=== PATIENT | male | born 1955 | race Caucasian/White ===

== ENCOUNTER → 2019-06-27 | Outpatient (REF) | payer MEDICARE, BC ==
[~2019-06-27] MED LIST: ASPIRIN PO; COUM1TAB18 OR; LISIPOW PO; OXYC1TAB23 OR; PLAVIX PO; PRAVASTATIN PO; TOPROL PO; TYLE325T5 PO
[2019-06-27 12:51] LABS: ALBUMIN 3.9 GM/DL (3.2-5.2); ALT/SGPT 26 U/L (12-78); BILIRUBIN,TOTAL 0.8 MG/DL (0.2-1.0); BLOOD UREA NITROGEN 19 MG/DL (7-18); CALCIUM LEVEL 8.6 MG/DL (8.8-10.2); CARBON DIOXIDE LEVEL 28 MEQ/L (21-32); CHLORIDE LEVEL 108 MEQ/L (98-107); CHOLESTEROL LEVEL 156 MG/DL (<200); CHOLESTEROL RISK RATIO 3.627 (<5); CREATININE FOR GFR 0.98 MG/DL (0.70-1.30); GLOMERULAR FILTRATION RATE > 60.0 (>49); GLUCOSE, FASTING 94 MG/DL (70-100); HDL CHOLESTEROL 43 MG/DL (>40); LDL CHOLESTEROL 89 MG/DL (<100); NON-HDL-C 113 MG/DL; POTASSIUM SERUM 4.1 MEQ/L (3.5-5.1); SODIUM LEVEL 141 MEQ/L (136-145); TOTAL PROTEIN 6.5 GM/DL (6.4-8.2); TRIGLYCERIDES LEVEL 121 MG/DL (<150)
[2019-06-27 14:07] LABS: HEMOGLOBIN A1c 5.2 %
== END ==
LOC: M LABDRAW1 11:27
PROVIDERS: ATTEND Family Medicine
DX: I25.10 Atherosclerotic heart disease of native coronary artery without angina pectoris (principal)

== ENCOUNTER → 2020-02-14 | Outpatient (CLI) | payer MEDICARE, BC ==
[2020-02-14 13:51] LABS: HEMATOCRIT 46.2 % (42.0-52.0); HEMOGLOBIN 15.9 g/dl (13.5-17.5); MEAN CORPUSCULAR HEMOGLOBIN 30.8 pg (27.0-33.0); MEAN CORPUSCULAR HGB CONC 34.4 g/dl (32.0-36.5); MEAN CORPUSCULAR VOLUME 89.4 fl (80.0-96.0); PLATELET COUNT, AUTOMATED 212 10^3/uL (150-450); RED BLOOD COUNT 5.17 10^6/uL (4.30-6.10); WHITE BLOOD COUNT 9.2 10^3/uL (4.0-10.0)
[2020-02-14 14:02] LABS: ALT/SGPT 33 U/L (12-78); BILIRUBIN,TOTAL 0.8 MG/DL (0.2-1.0); BLOOD UREA NITROGEN 18 MG/DL (7-18); CALCIUM LEVEL 8.5 MG/DL (8.8-10.2); CARBON DIOXIDE LEVEL 28 MEQ/L (21-32); CHLORIDE LEVEL 106 MEQ/L (98-107); CHOLESTEROL LEVEL 170 MG/DL (<200); CHOLESTEROL RISK RATIO 3.953 (<5); CREATININE FOR GFR 0.92 MG/DL (0.70-1.30); GLOMERULAR FILTRATION RATE > 60.0 (>49); GLUCOSE, FASTING 92 MG/DL (70-100); HDL CHOLESTEROL 43 MG/DL (>40); LDL CHOLESTEROL 107 MG/DL (<100); NON-HDL-C 127 MG/DL; POTASSIUM SERUM 4.5 MEQ/L (3.5-5.1); SODIUM LEVEL 140 MEQ/L (136-145); TOTAL PROTEIN 6.8 GM/DL (6.4-8.2); TRIGLYCERIDES LEVEL 100 MG/DL (<150)
[2020-02-14 14:30] LABS: ANISOCYTOSIS 1+; ATYPICAL LYMPH 5 % (0-5); BASOPHILS 2 % (0-1); EOSINOPHILS 12 % (0-3); LYMPHOCYTES 22 % (16-44); MONOCYTES 7 % (0-5); NEUTROPHILS 52 % (28-66); PLATELET ESTIMATE NORMAL (NORMAL)
== END ==
LOC: M PLALAB 11:07
PROVIDERS: ATTEND Family Medicine
DX: I11.9 Hypertensive heart disease without heart failure (principal)

== ENCOUNTER → 2020-09-11 | Outpatient (CLI) | payer MEDICARE, BC ==
[~2020-09-11] MED LIST changes: +CLOP75TA2 PO; +ECOT81TA5 PO; +LISI10TA4 PO; +METO1TAB7 PO; +PRAV40TA2 PO
== END ==
LOC: M LABSMTC 11:35
PROVIDERS: ATTEND Anesthesiology
DX: Z01.812 Encounter for preprocedural laboratory examination (principal); Z20.828 Contact with and (suspected) exposure to other viral communicable diseases

== ENCOUNTER 2020-09-16 09:08 | Inpatient (IN) | payer MEDICARE, BC ==
[~2020-09-16] VITALS: Ht 165.1 cm; Wt 83.5 kg
[~2020-09-16 09:08] MED LIST changes: +LIDOCAINE 2% 100MG/5ML SDV (FOR ANES.) As Ordered ONE; +NS 1,000 ML IV ONE; +propofoL 200 MG/20 ML VIAL As Ordered ONE
[2020-09-16] MEDS ORDERED: fentaNYL 100 MCG/2 ML INJECTION (J3010) As Ordered ONE (11:14)
[2020-09-16] MEDS ORDERED: ERTAPENEM 1GM VIAL(INVanz) (J1335 PER 500MG) As Ordered ONE (11:29)
[2020-09-16] MEDS ORDERED: ROCURONIUM BROMIDE 50 MG/5 ML VIAL As Ordered ONE (11:43)
[2020-09-16] MEDS ORDERED: BUPIVACAINE HCL 0.25% 30ML VIAL As Ordered ONE (11:45)
[2020-09-16] MEDS ORDERED: BUPIVACAINE LIPOSOME/PF 1.3% 20ML VIAL (13.3MG/ML)(EXPAREL)(C9290 PER1MG) As Ordered ONE (11:46)
[2020-09-16] MEDS ORDERED: GLYCOPYRROLATE INJ 0.2 MG/ML 2 ML VIAL As Ordered ONE (12:02)
[2020-09-16] MEDS ORDERED: HYDROmorphone HCL 2 MG/ML 1ML VIAL (J1170) As Ordered ONE (12:27)
[2020-09-16] MEDS ORDERED: dexameTHASONE 4 MG/ML 1ML VIAL (J1100 PER 1MG) As Ordered ONE (12:28)
[2020-09-16] MEDS ORDERED: SUGAMMADEX SODIUM 500 MG/5 ML VIAL (BRIDION) As Ordered ONE (12:28)
[2020-09-16] MEDS ORDERED: ACETAMINOPHEN 1000MG 100ML IV BTL (OFIRMEV) (J0131 PER 10MG) As Ordered ONE (12:28)
[2020-09-16] MEDS ORDERED: ONDANSETRON 4MG/2ML VIAL As Ordered ONE (12:28)
[2020-09-16] MEDS ORDERED: KETOROLAC 30 MG/ML 1ML VIAL IV PRN (13:00)
[2020-09-16] MEDS ORDERED: MORPHINE 2 MG/ML 1ML VIAL (J2270) IV PRN (13:45)
[2020-09-16] MEDS: LR 1,000 ML IV SCH ×2 (14:00→19:08)
[2020-09-16] MEDS ORDERED: ACETAMINOPHEN TAB 650MG DOSE (2X325MG) PO PRN (14:00)
[2020-09-16] MEDS ORDERED: PERCOCET 5MG/325MG TAB PO PRN (14:00)
[2020-09-16] MEDS ORDERED: fentaNYL 100 MCG/2 ML INJECTION (J3010) IV PRN (14:15)
[2020-09-16] MEDS ORDERED: ONDANSETRON 4MG/2ML VIAL IV PRN ×2 (14:15→15:00)
[2020-09-16] MEDS ORDERED: LR 1,000 ML IV SCH (14:15)
[2020-09-16] MEDS ORDERED: oxyCODONE 5MG TAB PO PRN (14:15)
[2020-09-16] MEDS ORDERED: HYDROMORPHONE HCL 0.5 MG/ 0.5 ML SYRINGE (J1170 PER 1) IV PRN (14:15)
--- NOTE | 2020-09-16 14:34 | ROOPDOC ---
[facility] Report Of Operation Report of Operation DATE OF PROCEDURE: 09/16/20 PREPROCEDURE DIAGNOSES: colon perforation. POSTPROCEDURE DIAGNOSES: perforation at the sigmoid colon. PROCEDURE: Diagnostic laparoscopy, converted to exploratory laparotomy, resection of portion of sigmoid colon, [id number] anastomosis. SURGEON: Wyatt Ching MD ELECTRONICS RESEARCH ENGINEER: Jonny House DO ANESTHESIA: General Anesthesia. ESTIMATED BLOOD LOSS: Approximately 50 mL. COMPLICATIONS: none. REMARKS: 65 male who today underwent colonoscopy for rectal bleeding and was recognized to have a colon perforation was directly brought to the operating room. I have spoken to his next of kin to inform them that he would require emergency surgery. Consent is implied due to the emergency nature. PROCEDURE NOTE: DESCRIPTION OF PROCEDURE: Patient was brought directly from the outpatient procedure room to the operating room. He was laid supine on the table. General endotracheal anesthesia was started. Compression boots placed on both lower extremities were DVT prophylaxis. He was then placed on the lithotomy position on Kali stirrups. A Hwang catheter was placed for urine output monitoring he was given a dose of Invanz 1 g IV. His abdomen widely prepped and draped in the usual sterile fashion. We paused for a surgical timeout using both pre-incision safety checklist to verify correct patient, procedure site and additional clinical information prior to beginning the procedure. Patient has a protuberant, rounded abdomen, moderately distended but soft. I started with an entry just to the right and above the umbilicus. A small inci shan was created for a Veress needle was inserted on a controlled fashion. Placement confirmed with saline drop technique. CO2 insufflation and started to pressure 15 mmHg. Using the same incision a 5 mm port was placed under direct vision of laparoscope. On entry he has distended loops of colon that is visualized. There is a small amount of blood in the pelvis but no gross spillage of stool is noted. He was placed on a steep Trendelenburg position, slightly tilted towards the right side to allow for better visualization of the sigmoid colon were think perforation happened. I placed 2 other ports one at the right lower quadrant area and another at the suprapubic area. Using this as my working ports, the site of perforation is noted over at the sigmoid colon. The rest of the colon appears distended but otherwise healthy. It seems to be full-thickness perforation. Initially the extent of the wall perforation or signs of it is not easily visualized. He has a narrow and deep medial pelvis. The rectum can be visualized but somewhat adhered to the posterior wall of the sacrum. The sigmoid goes up above the pelvis and the perforation was noted at the apex of this loop. It loops backboards again in the pelvis seems to be adhered to the rectum. This goes out again in a separate loop out of the pelvis to the descending colon where that portion again is adhered to the pelvic sidewall as well as the lateral abdominal wall which essentially made the sigmoid colon rather immobile. I started freeing up the lateral attachments of the descending and sigmoid colon junction at the white line of Toldt going towards the pelvis. Due to the amount of distention it was hard to move the colon medially also because of the sigmoid colon was adhered to the rectum it was not freely mobile. The colon was rather narrow and this was hard to visualize to be able to free the attachments of the sigmoid colon to the rectum. At this point I had asked Dr. House to scrub with me. We evaluate our options, the site of perforation can no w be better visualized. Its a full wall perforation at this point where the two openings are only connected at the mesenteric wall. Thus a primary repair is viable. He has a long length of the sigmoid colon but this is adhered to the rectum which seems to be amenable for a short resection with a [id number] anastomosis that can be fashioned off. At this point have decided to convert to an open laparotomy. The abdomen was deflated, all ports were removed. A started with an infraumbilical incision from the bottom of the umbilicus to the pelvis which I enlarged superiorly to gain more space. We went through the subcutaneous tissue and opened up the anterior fascia and entered the abdomen. The fascial and peritoneal incision was expanded to the length of the skin incision. A BookWalter retractor was set up. I proceeded freeing up the sigmoid colon continuing the prior laparoscopic dissection from the pelvic sidewall going towards its course into the rectum. The attachments to the rectum was divided with Bovie cautery as well as with the LigaSure device which was straightened up the course of the sigmoid colon. He were then able to exteriorize the perforated portion of the sigmoid colon. The colon seems to line up well for an antecolic side to side anastomosis using the two ends of the perforation. This was lined up with allis forceps. I chose a 75 mm linear stapler with a green load was used for an antecolic side to side anastomosis. The ends of the anterior colotomy was grasped with Allis forceps and second firing of the second 5 mm linear stapler with a green load was used to complete the closure of the colotomy. I then reinforced the anastomosis with Lembert sutures using 3-0 Vicryl starting at the crotch of the anastomosis also at the closure of the colotomies. The adequacy of the anastomosis was likewise checked as well as helical lined up in the pelvis. There remains a short loop coming from the descending colon that goes down slightly towards the pelvis before it enters the anastomosis and straightens out towards the rectum. The abdominal cavity was then irrigated with saline. I placed a 19 Cristobal drain threaded through the right lower quadrant port site and running towards the pelvis close to the anastomosis. The bowels and omentum were then placed in their anatomic location. The abdominal incision was closed. I used a 0 Vicryl at the peritoneum and posterior sheath and #1 stress effects to close the fascia. Subcutaneous tissue was irrigated and skin was closed with joseph. The drain was secured to the skin. Patient remains stable throughout the procedure. He was promptly awakened, extubated and brought to recovery room in stable condition. WYATT CHING MD Sep 16, 2020 14:34
[2020-09-16 15:15] VITALS: BP 143/83
[2020-09-16 15:45] VITALS: BP 143/83
[2020-09-16 16:15] VITALS: BP 130/82
[2020-09-16 17:15] VITALS: BP 142/90
[2020-09-16 19:15] VITALS: BP 136/78
[2020-09-16 20:15] VITALS: BP 140/88
[2020-09-16] MEDS: SENOKOT S TAB PO SCH (20:30)
[2020-09-16] MEDS: PERCOCET 5MG/325MG TAB PO PRN (20:30)
[2020-09-17] MEDS: ALVIMOPAN 12 MG CAPSULE (ENTEREG) PO SCH ×3 (00:13→21:06)
[2020-09-17 02:00] VITALS: BP 130/71
[2020-09-17] MEDS: LR 1,000 ML IV SCH ×2 (04:51→15:54)
[2020-09-17 06:00] VITALS: BP 131/77
[2020-09-17 06:08] LABS: BASO % 0.2 % (0.0-1.0); EOS % 0.1 % (0.0-3.0); HEMATOCRIT 40.5 % (42.0-52.0); HEMOGLOBIN 13.5 g/dl (13.5-17.5); LYMPH # 1.5 10^3/uL (1.5-5.0); LYMPH % 8.3 % (24.0-44.0); MEAN CORPUSCULAR HEMOGLOBIN 29.7 pg (27.0-33.0); MEAN CORPUSCULAR HGB CONC 33.3 g/dl (32.0-36.5); MONO # 1.2 10^3/uL (0.0-0.8); MONO % 6.7 % (0.0-5.0); NEUTROPHILS # 14.9 10^3/uL (1.5-8.5); PLATELET COUNT, AUTOMATED 204 10^3/uL (150-450); RED BLOOD COUNT 4.55 10^6/uL (4.30-6.10); WHITE BLOOD COUNT 17.7 10^3/uL (4.0-10.0)
[2020-09-17 06:33] LABS: BLOOD UREA NITROGEN 14 MG/DL (7-18); CALCIUM LEVEL 8.5 MG/DL (8.8-10.2); CARBON DIOXIDE LEVEL 27 MEQ/L (21-32); CHLORIDE LEVEL 108 MEQ/L (98-107); CREATININE FOR GFR 0.97 MG/DL (0.70-1.30); GLOMERULAR FILTRATION RATE > 60.0 (>49); GLUCOSE, FASTING 119 MG/DL (70-100); SODIUM LEVEL 138 MEQ/L (136-145)
[2020-09-17] MEDS: ENOXAPARIN 40MG/0.4ML SYRINGE (J1650 PER 10MG) SC SCH (08:45)
[2020-09-17] MEDS: METOPROLOL SUCC (TopROL XL) 50MG **XL** TAB PO SCH (08:45)
[2020-09-17] MEDS: PRAVASTATIN 20 MG TAB PO SCH (08:45)
[2020-09-17] MEDS: lisinopriL 10 MG TAB PO SCH (08:46)
[2020-09-17] MEDS: SENOKOT S TAB PO SCH ×2 (08:46→21:06)
[2020-09-17] MEDS: PERCOCET 5MG/325MG TAB PO PRN ×2 (08:47→18:26)
[2020-09-17 10:00] VITALS: BP 137/83
--- NOTE | 2020-09-17 10:09 | IPNPDOC ---
Text Note Date of Service The patient was seen on 09/17/20. NOTE Patient seen in bed this morning, was asleep, easy to wake up, relatively co mfortable on waking up. He reports he was uncomfortable last night with the incision also with the davis catheter. He has been hemodynamically stable, afebrile postop. No flatus yet. He denies being nauseated. He has tolerated some clear liquids intake last night and this morning. VS stable, nontachycardic Tmax 98.0, Tcurr 97.6 On exam, relatively comfortable laying flat on bed, not short of breath No JVD Regular heart rate and rhythm Clear breath sounds, no wheezing, slight decrease posterior basal areas, Sats 98% at 2L NC abdomen moderately distended, tympanitic, soft. Postoperative dressings are dry, no staining. SRINIVASA drain serosanguenous put out 100 mLs since surgery extremities, no significant edema POD1 exploratory laparotomy for iatrogenic colon perforation during colonoscopy with resection, repair of sigmoid colon perforation with [id number] anastomosis will keep him on clears. d/c davis catheter I instructed him to ambulate to the hallways will keep the abx for coverage cont drain entereg adjust pain control dvt prophylaxis I spoke to his sister to update her on his condition afterwards. VS,Fishbone, I+O VS, Fishbone, I+O Laboratory Tests 09/17/20 05:45 Vital Signs Date Time Temp Pulse Resp B/P (MAP) Pulse Ox O2 Delivery O2 Flow Rate FiO2 09/17/20 09:45 18 09/17/20 08:46 127/66 09/17/20 08:45 78 09/17/20 06:00 97.6 98 Nasal Cannula 2.0 I&O- Last 24 Hours up to 6 AM 09/17/20 05:59 Intake Total 4410 ml Output Total 855 ml Balance 3555 ml LYNN TOLBERT MD Sep 17, 2020 10:09
[2020-09-17] MEDS: ERTAPENEM SODIUM 1 GM in NS MINI-BAG PLUS 50 ML IV SCH (12:48)
[2020-09-17] MEDS ORDERED: MORPHINE 4 MG/ML 1ML VIAL/SYRINGE (J2270) IV PRN (20:45)
[2020-09-17] MEDS: KETOROLAC 30 MG/ML 1ML VIAL IV SCH (21:06)
[2020-09-17 22:00] VITALS: BP 129/87
[2020-09-18] MEDS: KETOROLAC 30 MG/ML 1ML VIAL IV SCH ×4 (02:27→21:30)
[2020-09-18] MEDS: LR 1,000 ML IV SCH (02:27)
[2020-09-18 06:00] VITALS: BP 151/84
[2020-09-18 07:10] LABS: BASO # 0.1 10^3/uL (0.0-0.2); BASO % 0.5 % (0.0-1.0); EOS # 0.6 10^3/uL (0.0-0.5); EOS % 5.4 % (0.0-3.0); HEMATOCRIT 38.1 % (42.0-52.0); HEMOGLOBIN 12.4 g/dl (13.5-17.5); LYMPH # 1.8 10^3/uL (1.5-5.0); MEAN CORPUSCULAR HEMOGLOBIN 29.7 pg (27.0-33.0); MEAN CORPUSCULAR HGB CONC 32.5 g/dl (32.0-36.5); MEAN CORPUSCULAR VOLUME 91.4 fl (80.0-96.0); MONO # 0.8 10^3/uL (0.0-0.8); NEUTROPHILS # 6.9 10^3/uL (1.5-8.5); NEUTROPHILS % 67.7 % (36.0-66.0); PLATELET COUNT, AUTOMATED 165 10^3/uL (150-450); RED BLOOD COUNT 4.17 10^6/uL (4.30-6.10); WHITE BLOOD COUNT 10.2 10^3/uL (4.0-10.0)
[2020-09-18 07:25] LABS: BLOOD UREA NITROGEN 11 MG/DL (7-18); CARBON DIOXIDE LEVEL 28 MEQ/L (21-32); CHLORIDE LEVEL 109 MEQ/L (98-107); GLOMERULAR FILTRATION RATE > 60.0 (>49); GLUCOSE, FASTING 77 MG/DL (70-100); POTASSIUM SERUM 3.8 MEQ/L (3.5-5.1); SODIUM LEVEL 141 MEQ/L (136-145)
[2020-09-18] MEDS: PRAVASTATIN 20 MG TAB PO SCH (09:04)
[2020-09-18] MEDS: SENOKOT S TAB PO SCH ×2 (09:05→21:30)
[2020-09-18] MEDS: ALVIMOPAN 12 MG CAPSULE (ENTEREG) PO SCH ×2 (09:05→21:30)
[2020-09-18] MEDS: ENOXAPARIN 40MG/0.4ML SYRINGE (J1650 PER 10MG) SC SCH (09:05)
[2020-09-18] MEDS: lisinopriL 10 MG TAB PO SCH (09:07)
[2020-09-18] MEDS: METOPROLOL SUCC (TopROL XL) 50MG **XL** TAB PO SCH (09:08)
--- NOTE | 2020-09-18 11:19 | IPNPDOC ---
Text Note Date of Service The patient was seen on 09/18/20. NOTE Patient seen this morning. Reports feeling much better today with regular sc heduled doses of the Toradol. Was able to sleep better last night. Still not able to pass flatus. He denies any nausea but does feel bloated. He has started to ambulate outside according to him. He has been afebrile. Vital signs MAXIMUM TEMPERATURE 98.6. The current 98.6 Blood pressure 139/77 pulse rate 68 respiratory rate 20 93% at room air Examination. Patient seen laying flat on bed looks much more comfortable than he was last night checked up on him. Skin is warm and moist Lung sounds are clear to auscultation bilaterally without wheezing Abdomen still remains rounded and soft moderately distended relatively quiet. I've always postoperative dressings. Incision is clean dry and intact. Antwon are in place. His right lower quadrant drain is serosanguineous. Minimal discomfort on palpation no real tenderness. Impression and plan Postop day 2 following exploratory laparotomy, repair and resection of the perforated part of the sigmoid colon with [id number] anastomosis I'll try him on full liquids today I encouraged him to continue to ambulate outside he still may have some ileus as he remains distended. Otherwise no signs of systemic inflammatory response, his leukocytosis has returned to normal. I will continue to hold the Plavix for now. Continue Invanz Lovenox for DVT prophylaxis VS,Shahlae, I+O VS, Devonbone, I+O Laboratory Tests 09/18/20 06:05 Vital Signs Date Time Temp Pulse Resp B/P (MAP) Pulse Ox O2 Delivery O2 Flow Rate FiO2 09/18/20 09:08 68 09/18/20 09:07 139/77 09/18/20 06:00 98.6 20 93 Room Air 09/17/20 22:00 I&O- Last 24 Hours up to 6 AM 09/18/20 05:59 Intake Total 4220 ml Output Total 2115 ml Balance 2105 ml LYNN TOLBERT MD Sep 18, 2020 11:19
[2020-09-18] MEDS: ERTAPENEM SODIUM 1 GM in NS MINI-BAG PLUS 50 ML IV SCH (11:36)
[2020-09-18 14:00] VITALS: BP 135/88
[2020-09-18 22:00] VITALS: BP 149/84
[2020-09-19] MEDS: KETOROLAC 30 MG/ML 1ML VIAL IV SCH ×4 (02:49→20:48)
[2020-09-19 05:12] LABS: BASO % 0.3 % (0.0-1.0); EOS # 0.4 10^3/uL (0.0-0.5); EOS % 2.7 % (0.0-3.0); HEMATOCRIT 38.7 % (42.0-52.0); HEMOGLOBIN 12.9 g/dl (13.5-17.5); LYMPH # 1.5 10^3/uL (1.5-5.0); LYMPH % 11.2 % (24.0-44.0); MEAN CORPUSCULAR HEMOGLOBIN 29.6 pg (27.0-33.0); MEAN CORPUSCULAR HGB CONC 33.3 g/dl (32.0-36.5); MEAN CORPUSCULAR VOLUME 88.8 fl (80.0-96.0); MONO # 0.7 10^3/uL (0.0-0.8); MONO % 5.6 % (0.0-5.0); NEUTROPHILS # 10.3 10^3/uL (1.5-8.5); NEUTROPHILS % 79.7 % (36.0-66.0); PLATELET COUNT, AUTOMATED 169 10^3/uL (150-450); RED BLOOD COUNT 4.36 10^6/uL (4.30-6.10); WHITE BLOOD COUNT 12.9 10^3/uL (4.0-10.0)
[2020-09-19 05:40] LABS: BLOOD UREA NITROGEN 12 MG/DL (7-18); C REACTIVE PROTEIN QUANTITATIV 7.02 MG/DL (0.00-0.30); CALCIUM LEVEL 8.4 MG/DL (8.8-10.2); CARBON DIOXIDE LEVEL 28 MEQ/L (21-32); CHLORIDE LEVEL 106 MEQ/L (98-107); CREATININE FOR GFR 0.93 MG/DL (0.70-1.30); GLOMERULAR FILTRATION RATE > 60.0 (>49); GLUCOSE, FASTING 100 MG/DL (70-100); POTASSIUM SERUM 3.6 MEQ/L (3.5-5.1); SODIUM LEVEL 141 MEQ/L (136-145)
[2020-09-19 06:00] VITALS: BP 129/69
[2020-09-19] MEDS: ALVIMOPAN 12 MG CAPSULE (ENTEREG) PO SCH ×2 (08:57→20:47)
[2020-09-19] MEDS: SENOKOT S TAB PO SCH ×2 (08:57→20:47)
[2020-09-19] MEDS: MIRALAX *UNIT DOSE* 17GM PACKET PO SCH (08:57)
[2020-09-19] MEDS: PRAVASTATIN 20 MG TAB PO SCH (08:57)
[2020-09-19] MEDS: ENOXAPARIN 40MG/0.4ML SYRINGE (J1650 PER 10MG) SC SCH (08:58)
[2020-09-19] MEDS: lisinopriL 10 MG TAB PO SCH (08:59)
[2020-09-19] MEDS: METOPROLOL SUCC (TopROL XL) 50MG **XL** TAB PO SCH (09:00)
[2020-09-19] MEDS ORDERED: ENOXAPARIN 40MG/0.4ML SYRINGE (J1650 PER 10MG) SC SCH (09:00)
[2020-09-19] MEDS: ERTAPENEM SODIUM 1 GM in NS MINI-BAG PLUS 50 ML IV SCH (12:04)
[2020-09-19 14:00] VITALS: BP 134/78
[2020-09-19 22:00] VITALS: BP 152/84
[2020-09-20] MEDS: KETOROLAC 30 MG/ML 1ML VIAL IV SCH ×2 (03:35→09:03)
[2020-09-20 06:00] VITALS: BP 151/82
[2020-09-20 06:33] LABS: BASO % 0.4 % (0.0-1.0); EOS % 10.5 % (0.0-3.0); HEMATOCRIT 37.3 % (42.0-52.0); HEMOGLOBIN 12.4 g/dl (13.5-17.5); LYMPH # 1.5 10^3/uL (1.5-5.0); LYMPH % 15.8 % (24.0-44.0); MEAN CORPUSCULAR HEMOGLOBIN 29.6 pg (27.0-33.0); MEAN CORPUSCULAR HGB CONC 33.2 g/dl (32.0-36.5); MONO # 0.8 10^3/uL (0.0-0.8); NEUTROPHILS # 6.1 10^3/uL (1.5-8.5); NEUTROPHILS % 64.7 % (36.0-66.0); PLATELET COUNT, AUTOMATED 183 10^3/uL (150-450); RED BLOOD COUNT 4.19 10^6/uL (4.30-6.10); WHITE BLOOD COUNT 9.5 10^3/uL (4.0-10.0)
[2020-09-20 06:49] LABS: BLOOD UREA NITROGEN 18 MG/DL (7-18); C REACTIVE PROTEIN QUANTITATIV 9.81 MG/DL (0.00-0.30); CALCIUM LEVEL 8.1 MG/DL (8.8-10.2); CARBON DIOXIDE LEVEL 29 MEQ/L (21-32); CHLORIDE LEVEL 108 MEQ/L (98-107); CREATININE FOR GFR 0.87 MG/DL (0.70-1.30); GLOMERULAR FILTRATION RATE > 60.0 (>49); GLUCOSE, FASTING 93 MG/DL (70-100); POTASSIUM SERUM 3.7 MEQ/L (3.5-5.1); SODIUM LEVEL 142 MEQ/L (136-145)
[2020-09-20] MEDS ORDERED: IBUP-1022 PO (08:13)
[2020-09-20] MEDS ORDERED: ULTR50TA8 PO (08:13)
[2020-09-20] MEDS: ENOXAPARIN 40MG/0.4ML SYRINGE (J1650 PER 10MG) SC SCH (09:00)
[2020-09-20] MEDS: MIRALAX *UNIT DOSE* 17GM PACKET PO SCH (09:00)
[2020-09-20] MEDS: ALVIMOPAN 12 MG CAPSULE (ENTEREG) PO SCH (09:02)
[2020-09-20] MEDS: PRAVASTATIN 20 MG TAB PO SCH (09:02)
[2020-09-20] MEDS: SENOKOT S TAB PO SCH (09:02)
[2020-09-20 09:04] VITALS: BP 140/90
[2020-09-20] MEDS: METOPROLOL SUCC (TopROL XL) 50MG **XL** TAB PO SCH (09:04)
[2020-09-20] MEDS: lisinopriL 10 MG TAB PO SCH (09:04)
--- NOTE | 2020-09-20 11:48 | IPN ---
PROGRESS NOTE DATE: 09/19/2020 SUBJECTIVE: Patient overall has been feeling good, having minimal pain, been up moving around a lot more, has had a few bowel movements at this time without nausea, without vomiting. His SRINIVASA drain is draining some serosanguineous fluid. He is hungry at this time and overall feels well. PHYSICAL EXAMINATION: Vitals reveal T-max of 99.6. Abdomen: Softly distended, nontender. His incision is a little ecchymotic, slightly erythematous, but most likely reactive erythema from surgery. No drainage from the site. Extremities: Warm and well perfused. LABORATORY DATA: White count did bump up a little bit to 12.9 today. IMPRESSION AND PLAN: Patient overall from a GI standpoint is making good progress. We will advance his diet to a regular diet. His other issue obviously is that he had a bowel perforation and his risk of wound infection is higher and thus we will need to see what his white count is tomorrow as well as determine if this slight erythema/ecchymosis in this area is more than just reactive edema secondary to probably some mild hematoma in this area. Otherwise we will probably discharge to home if his white count comes down and he is looking good. We have him return to the office early next week for drain removal; however.
== END 2020-09-20 10:25 | disposition home or self-care (01) | DRG 909 ==
LOC: M OPP 09:08 → M MSPAV 13:41
PROVIDERS: ADMIT Surgery; ATTEND Surgery
PROC: 0DBN0ZZ Excision of Sigmoid Colon, Open Approach (ICD-10-PCS; principal; 2020-09-16 10:40)
DX: K91.71 Accidental puncture and laceration of a digestive system organ or structure during a digestive system procedure (principal); Z53.31 Laparoscopic surgical procedure converted to open procedure; I10 Essential (primary) hypertension; E78.5 Hyperlipidemia, unspecified; I73.9 Peripheral vascular disease, unspecified

== ENCOUNTER 2020-10-10 13:28 | Emergency (ER) | payer MEDICARE, BC ==
[~2020-10-10] VITALS: Ht 165.1 cm; Wt 80.9 kg
[~2020-10-10 13:28] MED LIST changes: +IBUP-1022 PO; -LIDOCAINE 2% 100MG/5ML SDV (FOR ANES.) As Ordered ONE; -NS 1,000 ML IV ONE; +ULTR50TA8 PO; -propofoL 200 MG/20 ML VIAL As Ordered ONE
[2020-10-10] MEDS ORDERED: CEPH500C PO (13:35)
[2020-10-10 16:38] LABS: BASO # 0.1 10^3/uL (0.0-0.2); EOS # 0.9 10^3/uL (0.0-0.5); EOS % 9.3 % (0.0-3.0); HEMATOCRIT 45.9 % (42.0-52.0); LYMPH # 2.8 10^3/uL (1.5-5.0); MEAN CORPUSCULAR HEMOGLOBIN 29.1 pg (27.0-33.0); MEAN CORPUSCULAR HGB CONC 32.7 g/dl (32.0-36.5); MEAN CORPUSCULAR VOLUME 89.1 fl (80.0-96.0); MONO # 0.8 10^3/uL (0.0-0.8); MONO % 7.9 % (0.0-5.0); NEUTROPHILS # 5.4 10^3/uL (1.5-8.5); NEUTROPHILS % 53.1 % (36.0-66.0); PLATELET COUNT, AUTOMATED 311 10^3/uL (150-450); RED BLOOD COUNT 5.15 10^6/uL (4.30-6.10); WHITE BLOOD COUNT 10.1 10^3/uL (4.0-10.0)
[2020-10-10 17:19] VITALS: BP 166/87
== END 2020-10-10 17:22 | disposition home or self-care (01) ==
LOC: M ED 13:28
DX: K91.89 Other postprocedural complications and disorders of digestive system (principal); R10.9 Unspecified abdominal pain; K57.90 Diverticulosis of intestine, part unspecified, without perforation or abscess without bleeding; I11.9 Hypertensive heart disease without heart failure; I25.10 Atherosclerotic heart disease of native coronary artery without angina pectoris; I25.2 Old myocardial infarction; E78.5 Hyperlipidemia, unspecified; Z95.5 Presence of coronary angioplasty implant and graft; Z96.653 Presence of artificial knee joint, bilateral; Z79.899 Other long term (current) drug therapy; Z79.2 Long term (current) use of antibiotics; Z79.02 Long term (current) use of antithrombotics/antiplatelets; Z79.82 Long term (current) use of aspirin

== ENCOUNTER → 2021-02-16 | Outpatient (CLI) | payer MEDICARE, BC ==
[~2021-02-16] MED LIST changes: +CEPH500C PO; +LISI10TA22 PO; -LISI10TA4 PO
[2021-02-16 11:50] LABS: BASO # 0.1 10^3/uL (0.0-0.2); BASO % 1.1 % (0.0-1.0); EOS # 0.9 10^3/uL (0.0-0.5); EOS % 11.6 % (0.0-3.0); LYMPH # 1.9 10^3/uL (1.5-5.0); LYMPH % 23.7 % (24.0-44.0); MEAN CORPUSCULAR HEMOGLOBIN 29.4 pg (27.0-33.0); MEAN CORPUSCULAR HGB CONC 33.3 g/dl (32.0-36.5); MEAN CORPUSCULAR VOLUME 88.1 fl (80.0-96.0); MONO # 0.7 10^3/uL (0.0-0.8); MONO % 8.7 % (2.0-8.0); NEUTROPHILS # 4.4 10^3/uL (1.5-8.5); NEUTROPHILS % 54.5 % (36.0-66.0); PLATELET COUNT, AUTOMATED 220 10^3/uL (150-450); RED BLOOD COUNT 5.11 10^6/uL (4.30-6.10); WHITE BLOOD COUNT 8.1 10^3/uL (4.0-10.0)
[2021-02-16 12:27] LABS: ALBUMIN 3.7 GM/DL (3.2-5.2); ALT/SGPT 26 U/L (12-78); BILIRUBIN,TOTAL 0.6 MG/DL (0.2-1.0); BLOOD UREA NITROGEN 17 MG/DL (7-18); CALCIUM LEVEL 8.5 MG/DL (8.8-10.2); CARBON DIOXIDE LEVEL 27 MEQ/L (21-32); CHLORIDE LEVEL 111 MEQ/L (98-107); CHOLESTEROL LEVEL 163 MG/DL (<200); CREATININE FOR GFR 0.83 MG/DL (0.70-1.30); GLOMERULAR FILTRATION RATE > 60.0 (>49); GLUCOSE, FASTING 101 MG/DL (70-100); HDL CHOLESTEROL 43 MG/DL (>40); LDL CHOLESTEROL 98 MG/DL (<100); NON-HDL-C 120 MG/DL; POTASSIUM SERUM 4.4 MEQ/L (3.5-5.1); SODIUM LEVEL 141 MEQ/L (136-145); TOTAL PROTEIN 6.5 GM/DL (6.4-8.2); TRIGLYCERIDES LEVEL 112 MG/DL (<150)
== END ==
LOC: M WUC 09:48
PROVIDERS: ATTEND Family Medicine
DX: I11.9 Hypertensive heart disease without heart failure (principal)

== ENCOUNTER → 2022-06-13 | Outpatient (REF) | payer MEDICARE, BC ==
[2022-06-13 19:42] LABS: APPEARANCE, URINE MANUAL CLEAR (CLEAR); COLOR, URINE MANUAL YELLOW (YELLOW)
[2022-06-13 19:43] LABS: BILIRUBIN, URINE MANUAL NEGATIVE (NEGATIVE); BLOOD URINE MANUAL NEGATIVE (NEGATIVE); GLUCOSE, URINE (UA) MANUAL NEGATIVE (NEGATIVE); KETONE, URINE MANUAL NEGATIVE (NEGATIVE); LEUKOCYTE ESTERASE, URINE MAN NEGATIVE (NEGATIVE); NITRITE, URINE MANUAL NEGATIVE (NEGATIVE); PROTEIN, URINE MANUAL NEGATIVE (NEGATIVE); SPECIFIC GRAVITY,URINE MANUAL 1.025 (1.002-1.035); UROBILINOGEN, URINE MANUAL NORMAL (NORMAL)
== END ==
LOC: M SMT 16:47
PROVIDERS: ATTEND Physician Assistant
DX: N39.0 Urinary tract infection, site not specified (principal)

== ENCOUNTER → 2022-11-23 | Outpatient (CLI) | payer MEDICARE, BC ==
[~2022-11-23] MED LIST changes: +METO1TAB32 PO; +ROSU10TA6 PO; +TERB250T91 PO
== END ==
LOC: M LABSMTC 10:32
PROVIDERS: ATTEND Anesthesiology
DX: Z01.812 Encounter for preprocedural laboratory examination (principal); Z11.52 Encounter for screening for COVID-19

== ENCOUNTER 2022-11-28 08:03 | Day surgery (SDC) | payer MEDICARE, BC ==
[~2022-11-28] VITALS: Ht 165.1 cm; Wt 83.4 kg
[~2022-11-28 08:03] MED LIST changes: +NS 1,000 ML IV ONE
[2022-11-28] MEDS ORDERED: fentaNYL 100 MCG/2 ML INJECTION As Ordered ONE (09:31)
[2022-11-28] MEDS ORDERED: ePHEDrine SULFATE 25 MG/5 ML(5MG/ML) SYRINGE As Ordered ONE (09:45)
[2022-11-28 10:20] VITALS: BP 133/79
== END 2022-11-28 10:30 | disposition home or self-care (01) ==
LOC: M OPP 08:03
PROVIDERS: ATTEND Internal Medicine Gastroenterology
DX: K57.30 Diverticulosis of large intestine without perforation or abscess without bleeding (principal); K64.8 Other hemorrhoids; Z98.0 Intestinal bypass and anastomosis status; R19.5 Other fecal abnormalities; Z80.0 Family history of malignant neoplasm of digestive organs; I10 Essential (primary) hypertension; E78.00 Pure hypercholesterolemia, unspecified; I25.2 Old myocardial infarction; Z79.02 Long term (current) use of antithrombotics/antiplatelets; Z79.1 Long term (current) use of non-steroidal anti-inflammatories (NSAID); Z79.82 Long term (current) use of aspirin; Z79.899 Other long term (current) drug therapy; Z87.19 Personal history of other diseases of the digestive system; Z87.891 Personal history of nicotine dependence; Z95.5 Presence of coronary angioplasty implant and graft
CPT/HCPCS: 45378; J3010

== ENCOUNTER → 2025-02-13 | Outpatient (CLI) | payer MEDICARE, BC ==
[~2025-02-13] MED LIST changes: +ISOVUE-370 76% 100ML VIAL As Ordered ONE; -NS 1,000 ML IV ONE; -ROSU10TA6 PO; +ROSU10TA61 PO
== END ==
LOC: M RAD 09:40
DX: C18.1 Malignant neoplasm of appendix (principal)
CPT/HCPCS: 71260; 74177; Q9967

== ENCOUNTER → 2025-05-13 | Outpatient (CLI) | payer MEDICARE, BC ==
[~2025-05-13] MED LIST changes: +ISOVUE-370 76% 100 ML VIAL As Ordered ONE; -ISOVUE-370 76% 100ML VIAL As Ordered ONE; -PRAV40TA2 PO; +PRAV40TA85 PO
== END ==
LOC: M RAD 14:16
DX: C18.1 Malignant neoplasm of appendix (principal); K76.0 Fatty (change of) liver, not elsewhere classified; N28.1 Cyst of kidney, acquired; Z98.0 Intestinal bypass and anastomosis status; Z90.49 Acquired absence of other specified parts of digestive tract; K76.89 Other specified diseases of liver; K43.9 Ventral hernia without obstruction or gangrene; I70.0 Atherosclerosis of aorta; I25.10 Atherosclerotic heart disease of native coronary artery without angina pectoris
CPT/HCPCS: 71260; 74177; Q9967